=== PATIENT | female | born 1935 | race Caucasian/White ===

== ENCOUNTER → 2016-11-13 | Outpatient (CLI) | payer OTHER ==
--- NOTE | 2016-11-14 08:17 | RAD ---
DATE: 11/13/2016 EXAM: DIGITAL SCREEN BILAT W/CAD HISTORY: Routine screening. Benign bilateral biopsies. COMPARISON: 2016, 2014 and 2013 mammograms This study was interpreted with the benefit of Computerized Aided Detection (CAD ). TECHNIQUE: Routine CC and MLO views of both breasts are obtained. FINDINGS: The breast tissue density is [B ] . There are scattered stable benign calcifications and nodules in both breasts.. There are no dominant suspicious masses, suspicious microcalcifications or evidence of architectural distortion. Skin and nipples are intact. IMPRESSION: No mammographic evidence of malignancy. Stable mammogram. BI-RADS CATEGORY: 2 BENIGN FINDING RECOMMENDED FOLLOW-UP: One year PQRS compliance statement: Patient information was entered into a reminder system with a target due date for the next mammogram. Mammography is a sensitive method for finding small breast cancers, but it does not detect them all and is not a substitute for careful clinical examination. A negative mammogram does not negate a clinically suspicious finding and should not result in delay in biopsying a clinically suspicious abnormality. "Our facility is accredited by the [employer] Mammography Program." HORACIOD
== END | disposition home or self-care (01) ==
LOC: MAMMO 09:50
PROVIDERS: ATTEND Internal Medicine
DX: Z12.31 Encounter for screening mammogram for malignant neoplasm of breast (principal)
CPT/HCPCS: G0202; 77067

== ENCOUNTER → 2017-11-14 | Outpatient (CLI) | payer OTHER ==
--- NOTE | 2017-11-14 15:00 | RAD ---
DATE: 11/14/2017 EXAM: DIGITAL SCREEN BILAT W/CAD HISTORY: Routine screening COMPARISON: 11/13/2016 This study was interpreted with the benefit of Computerized Aided Detection (CAD). Breast Density: HETERO The breast parenchyma is heterogenously dense, which could reduce sensitivity of mammography. Breast parenchyma level C. FINDINGS: No new or enlarging breast densities are seen. There are numerous coarse benign type calcifications in both breasts. No suspicious microcalcifications have developed. Benign-appearing lymph node type densities are again noted in the left axilla. IMPRESSION: Stable mammograms without evidence of malignancy. BI-RADS CATEGORY: 2 BENIGN FINDING(S) RECOMMENDED FOLLOW-UP: 12M 12 MONTH FOLLOW-UP PQRS compliance statement: Patient information was entered into a reminder system with a target due date for the next mammogram. Mammography is a sensitive method for finding small breast cancers, but it does not detect them all and is not a substitute for careful clinical examination. A negative mammogram does not negate a clinically suspicious finding and should not result in delay in biopsying a clinically suspicious abnormality. "Our facility is accredited by the [employer] Mammography Program."
== END | disposition home or self-care (01) ==
LOC: MAMMO 09:50
PROVIDERS: ATTEND Internal Medicine
DX: Z12.31 Encounter for screening mammogram for malignant neoplasm of breast (principal)
CPT/HCPCS: 77067

== ENCOUNTER 2021-03-29 09:33 | Observation (INO) | payer MEDICARE, OTHER ==
[~2021-03-29] VITALS: Ht 162.6 cm; Wt 80.0 kg
[2021-03-29] MEDS ORDERED: IPRATRPIUM/ALBUTEROL 0.5/2.5MG 3 ML NEBU. NEB ONE (09:45)
[2021-03-29] MEDS ORDERED: methylPREDNISolone SOD SUCC PF 125 MG/2 ML VIAL. IV ONE (09:45)
[2021-03-29 10:04] LABS: BASO % 1 % (0-3); EOS % 1 % (0-3); HEMOGLOBIN 12.9 g/dL (12.0-15.5); LYMPH # 0.9 x10^3/uL (1.0-4.8); LYMPH % 15 % (24-48); MEAN CORPUSCULAR HEMOGLOBIN 30 pg (25-35); MEAN CORPUSCULAR HGB CONC 32 g/dL (31-37); MEAN CORPUSCULAR VOLUME 92 fL (79-100); MONO # 0.5 x10^3/uL (0.0-1.1); MONO % 9 % (0-9); NEUT # 4.5 x10^3uL (1.8-7.7); NEUT % 75 % (31-73); PLATELET COUNT 178 x10^3/uL (140-400); RED BLOOD COUNT 4.33 x10^6/uL (3.50-5.40); RED CELL DISTRIBUTION WIDTH 13.6 % (11.5-14.5)
--- NOTE | 2021-03-29 10:08 | EKG ---
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
--- NOTE | 2021-03-29 10:08 | RAD ---
XR CHEST 1V CLINICAL INDICATIONS: Shortness of breath. COMPARISON: None available Findings: Bilateral mild interstitial thickening or bronchitis is seen. No lung consolidation or pleu ral effusion or pneumothorax is apparent. Granuloma of the left lung base is seen. The heart size, pu lmonary vasculature, mediastinum and both edwardo are unremarkable. 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 Radiopaque loose bodies of both glenohumeral joints are seen. IMPRESSION: Mild bilateral central interstitial pneumonitis/bronchitis. This may be acute or chronic in nature. No lung consolidation is seen otherwise. Electronically signed by: Leodan Kamara MD (03/29/2021 10:06 AM) [id number]
[2021-03-29 10:13] LABS: CALCIUM 9.4 mg/dL (8.5-10.1); GFR 52.7
[2021-03-29 10:19] LABS: ALBUMIN 3.8 g/dL (3.4-5.0); ALBUMIN/GLOBULIN RATIO 1.1 (1.0-1.7); TOTAL BILIRUBIN 0.6 mg/dL (0.2-1.0); TOTAL PROTEIN 7.2 g/dL (6.4-8.2)
[2021-03-29 10:33] LABS: INFLUENZA A PATIENT NEGATIVE (NEGATIVE); INFLUENZA B PATIENT NEGATIVE (NEGATIVE)
--- NOTE | 2021-03-29 11:45 | PHYS DOC ---
Past History Additional Past Medical Histor: Gout Past Surgical History: Cholecystectomy, Hysterectomy, Other Additional Past Surgical Histo: knee, back Alcohol Use: None General Adult EDM: Chief Complaint: SHORTNESS OF BREATH HPI: HPI: 86-year-old female presents with shortness of breath. She has been feeling more short of breath last couple of days. She has had an intermittent cough for couple weeks but more persistent for about 1 week. It is much worse today so she came to the hospital. The patient does not have a history of asthma or COPD. She went to the doctor on Saturday and had a chest x-ray which was negative. Patient denies fever or chills. She has no other complaints at this time. Review of Systems: Review of Systems: Constitutional: Denies fever or chills Eyes: Denies change in visual acuity HENT: Denies nasal congestion or sore throat Respiratory: Denies cough or shortness of breath Cardiovascular: Denies chest pain or edema GI: Denies abdominal pain, nausea, vomiting, bloody stools or diarrhea : Denies dysuria Musculoskeletal: Denies back pain or joint pain Integument: Denies rash Neurologic: Denies headache, focal weakness or sensory changes Endocrine: Denies polyuria or polydipsia Lymphatic: Denies swollen glands Psychiatric: Denies depression or anxiety Current Medications: Current Meds: Current Medications Medications (Trade) Dose Ordered Sig/Zina Start Time Stop Time Status Last Admin Dose Admin Albuterol/ Ipratropium (Duoneb) 3 ml 1X ONCE 03/29/21 09:45 03/29/21 09:59 DC 03/29/21 09:54 3 ML Methylprednisolone Sodium Succinate (SOLU-Medrol 125MG VIAL) 125 mg 1X ONCE 03/29/21 09:45 03/29/21 09:59 DC 03/29/21 09:56 125 MG Allergies: Allergies: Allergies Coded Allergies Type Severity Reaction Last Updated Verified No Known Drug Allergies 03/29/21 No Physical Exam: PE: Constitutional: Well developed, well nourished, no acute distress, non-toxic appearance. [] HENT: Normocephalic, atraumatic, bilateral external ears normal, oropharynx moist, no oral exudates, nose normal. [] Eyes: PERRLA, EOMI, conjunctiva normal, no discharge. [] Neck: Normal range of motion, no tenderness, supple, no stridor. [] Cardiovascular:Heart rate regular rhythm, no murmur [] Lungs & Thorax: Bilateral breath sounds clear to auscultation [] Abdomen: Bowel sounds normal, soft, no tenderness, no masses, no pulsatile masses. [] Skin: Warm, dry, no erythema, no rash. [] Back: No tenderness, no CVA tenderness. [] Extremities: No tenderness, no cyanosis, no clubbing, ROM intact, no edema. [] Neurologic: Alert and oriented X 3, normal motor function, normal sensory function, no focal deficits noted. [] Psychologic: Affect normal, judgement normal, mood normal. [] Current Patient Data: Labs: Laboratory Tests Test 03/29/21 09:46 White Blood Count 6.0 x10^3/uL (4.0-11.0) Red Blood Count 4.33 x10^6/uL (3.50-5.40) Hemoglobin 12.9 g/dL (12.0-15.5) Hematocrit 40.0 % (36.0-47.0) Mean Corpuscular Volume 92 fL (79-100) Mean Corpuscular Hemoglobin 30 pg (25-35) Mean Corpuscular Hemoglobin Concent 32 g/dL (31-37) Red Cell Distribution Width 13.6 % (11.5-14.5) Platelet Count 178 x10^3/uL (140-400) Neutrophils (%) (Auto) 75 % (31-73) H Lymphocytes (%) (Auto) 15 % (24-48) L Monocytes (%) (Auto) 9 % (0-9) Eosinophils (%) (Auto) 1 % (0-3) Basophils (%) (Auto) 1 % (0-3) Neutrophils # (Auto) 4.5 x10^3uL (1.8-7.7) Lymphocytes # (Auto) 0.9 x10^3/uL (1.0-4.8) L Monocytes # (Auto) 0.5 x10^3/uL (0.0-1.1) Eosinophils # (Auto) 0.0 x10^3/uL (0.0-0.7) Basophils # (Auto) 0.0 x10^3/uL (0.0-0.2) Sodium Level 139 mmol/L (136-145) Potassium Level 4.0 mmol/L (3.5-5.1) Chloride Level 102 mmol/L (98-107) Carbon Dioxide Level 29 mmol/L (21-32) Anion Gap 8 (6-14) Blood Urea Nitrogen 21 mg/dL (7-20) H Creatinine 1.0 mg/dL (0.6-1.0) Estimated GFR (Cockcroft-Gault) 52.7 BUN/Creatinine Ratio 21 (6-20) H Glucose Level 143 mg/dL (70-99) H Calcium Level 9.4 mg/dL (8.5-10.1) Total Bilirubin 0.6 mg/dL (0.2-1.0) Aspartate Amino Transferase (AST) 24 U/L (15-37) Alanine Aminotransferase (ALT) 20 U/L (14-59) Alkaline Phosphatase 95 U/L (46-116) Troponin I High Sensitivity 15 ng/L (4-50) Total Protein 7.2 g/dL (6.4-8.2) Albumin 3.8 g/dL (3.4-5.0) Albumin/Globulin Ratio 1.1 (1.0-1.7) Influenza Type A (Rapid) Negative (NEGATIVE) Influenza Type B (Rapid) Negative (NEGATIVE) SARS-CoV-2 Antigen (Rapid) Negative (NEGATIVE) Vital Signs: Vital Signs Date Time Temp Pulse Resp B/P (MAP) Pulse Ox O2 Delivery O2 Flow Rate FiO2 03/29/21 11:00 73 16 172/78 (109) 95 Nasal Cannula 3.0 03/29/21 09:35 98.2 EKG: EKG: Sinus rhythm, rate 71, normal axis, no ST elevation or depression. [] Radiology/Procedures: Radiology/Procedures: [] Heart Score: C/O Chest Pain: No Risk Factors: Risk Factors: DM, Current or recent (<one month) smoker, HTN, HLP, family history of CAD, obesity. Risk Scores: Score 0 - 3: 2.5% MACE over next 6 weeks - Discharge Home Score 4 - 6: 20.3% MACE over next 6 weeks - Admit for Clinical Observation Score 7 - 10: 72.7% MACE over next 6 weeks - Early Invasive Strategies Course & Med Decision Making: Course & Med Decision Making Pertinent Labs and Imaging studies reviewed. (See chart for details) The patient arrived in moderate distress with her oxygen saturation in the 60s on room air. We immediately placed her on nonrebreather and she improved to the upper 90s. She was given a DuoNeb treatment and Solu-Medrol. This significantly improved her symptoms and we were able to decrease her to 3 L nasal cannula. She continues to have bilateral wheezing. Chest x-ray has the appearance of bronchitis. See official read for more details. Her labs are unremarkable. Her rapid COVID and influenza are negative. I will admit her to the hospital. I spoke with the hospitalist, Dr. Mccallum and he has accepted the patient for admission. [] Dragon Disclaimer: Dragon Disclaimer: This electronic medical record was generated, in whole or in part, using a voice recognition dictation system. Departure Departure: Impression: Primary Impression: Reactive airway disease Additional Impression: Hypoxia Disposition: ADMITTED INPATIENT Admitting Physician: Ernie Mccallum Condition: STABLE Referrals: VERENICE PRUITT MD (PCP) BLANE WESTON DO Mar 29, 2021 11:45
[2021-03-29] MEDS ORDERED: ONDANSETRON PF 4 MG/2 ML VIAL. IVP PRN (12:00)
[2021-03-29] MEDS: IPRATRPIUM/ALBUTEROL 0.5/2.5MG 3 ML NEBU. NEB SCH ×3 (12:00→21:24)
--- NOTE | 2021-03-29 13:22 | HP ---
DATE OF SERVICE: 03/29/2021 ADMIT DATE: 03/29/2021 ATTENDING PHYSICIAN: Dr. Mccallum. CHIEF COMPLAINT: Shortness of breath and wheezing. HISTORY OF PRESENT ILLNESS: The patient is a delightful sharp 86-year-old female admitted through the ED with a 1-week history of increasing shortness of breath. She saw her primary care doctor who prescribed a short course of Zithromax. Today, she called EMS personnel. She was wheezing quite a bit. She had decreased oxygen saturation. The workup in the ED was fairly unremarkable. Chest x-ray was entirely clear. There was no decompensation or infiltrate. She was given a dose of Solu-Medrol along with nebulizer treatment. By the time I saw her, her hypoxemia improved. Her oxygen saturations were adequate over 93% on 2 liters. She is admitted then with an episode of bronchospasm and hypoxemia, which has since resolved. PAST MEDICAL HISTORY: Significant for essential hypertension. She has a history of gout. She has a previous cholecystectomy and hysterectomy. ALLERGIES: She has no recorded drug allergies. CURRENT MEDICATIONS: Reviewed at home indicate she was taking Zithromax, albuterol inhaler, losartan, and allopurinol. I am finding the dose of these medications. SOCIAL HISTORY: She is a nonsmoker, nondrinker. She is and retired, lives with her . She has been active otherwise. FAMILY HISTORY: Her father of complication of lung disease. He was a heavy smoker. Mom of old age at age of 95. REVIEW OF SYSTEMS: Significant for the fact she has had all her vaccinations and booster shots. No COVID exposure. All other systems reviewed and turned out to be negative. PHYSICAL EXAMINATION: GENERAL: When I saw her, this is a very pleasant elderly female who is alert and oriented. VITAL SIGNS: Initial vital signs showed a blood pressure 138/87, pulse is 67 and regular. She was afebrile. Oxygen saturation when I saw her was 96% on 2 liters. HEENT: Head is without trauma. Pupils are reactive. Sclerae nonicteric. The oropharynx is clear. NECK: Supple, no bruits. LUNGS: Diffuse wheezing bilaterally. CARDIOVASCULAR: Showed regular heart tones. ABDOMEN: Soft. EXTREMITIES: Without edema. NEUROLOGIC FINDINGS: Focally intact. Speech is fluent. SKIN: Warm and dry. LABORATORY STUDIES: The hemoglobin is 12.9 g/dL with a white count of 6000. Electrolytes all within normal range. Creatinine 1.0 mg percent. Cardiac enzymes negative for coronary ischemia. Serology: Rapid COVID swab was negative. Influenza A and B were negative. ASSESSMENT: 1. This 86-year-old female has acute episode of bronchospasm. 2. Mild bronchitis. 3. Essential hypertension. 4. Hypoxemia, resolving. PLAN: 1. Observation status in our hospital. 2. Continue steroids as ordered. 3. Continue antibiotics as ordered. 4. Continue home meds. MARIANNE DR: Jannette TID: [id number]
[2021-03-29 14:00] VITALS: BP 170/66
[2021-03-29] MEDS ORDERED: LOSA100T14 PO (16:27)
[2021-03-29] MEDS ORDERED: CARV25TA2 PO (16:27)
[2021-03-29] MEDS ORDERED: ALLO300T PO (16:27)
[2021-03-29] MEDS ORDERED: hydrocort (16:27)
[2021-03-29] MEDS ORDERED: AMLO5TAB4 PO (16:27)
[2021-03-29] MEDS ORDERED: MECO10005 PO (16:27)
[2021-03-29] MEDS ORDERED: GEMF-24 PO (16:27)
[2021-03-29] MEDS ORDERED: FURO20TA3 PO (16:27)
[2021-03-29] MEDS ORDERED: ASPI81TA59 PO (16:27)
[2021-03-29] MEDS ORDERED: CALC1CAP7 PO (16:37)
[2021-03-29] MEDS ORDERED: [UNRECOGNIZED DRUG - OTHER] (16:42)
[2021-03-29 19:54] VITALS: BP 177/83
[2021-03-29] MEDS: methylPREDNISolone SOD SUCC PF 40 MG/ML VIAL. IV SCH (21:24)
[2021-03-29 23:21] VITALS: BP 170/76
[2021-03-30] MEDS: IPRATRPIUM/ALBUTEROL 0.5/2.5MG 3 ML NEBU. NEB SCH ×3 (05:45→09:16)
[2021-03-30 06:12] VITALS: BP 177/77
[2021-03-30] MEDS: methylPREDNISolone SOD SUCC PF 40 MG/ML VIAL. IV SCH ×2 (09:29→20:13)
--- NOTE | 2021-03-30 09:39 | PN ---
DATE: 03/30/2021 ATTENDING PHYSICIAN: Dr. Mccallum. SUBJECTIVE: She is still actively wheezing. She is less dyspneic than yesterday. OBJECTIVE FINDINGS: VITAL SIGNS: Blood pressure this morning is 177/77, pulse is 70 and regular. She is afebrile. Oxygen saturation 96% on just 1 liter. We are in the process of weaning her down. HEENT: Head is without trauma. Pupils are reactive. Sclerae nonicteric. Oropharynx clear. NECK: Supple, no bruits. LUNGS: Diffuse wheezing bilaterally persist. CARDIOVASCULAR: Regular heart tones. ABDOMEN: Soft. EXTREMITIES: Without edema. Chest x-ray on admission was clear. ASSESSMENT: 1. An 86-year-old female with acute bronchitis. 2. Bronchial asthma. 3. Hypoxemia, resolved. 4. Essential hypertension. PLAN: 1. Admit to regular admission. 2. Continue corticosteroids. 3. Wean down supplemental oxygen. 4. Continue empiric antibiotics. 5. Tentative discharge held until tomorrow. BONITA/SABRINA DR: Jannette TID: [id number]
[2021-03-30 11:56] VITALS: BP 187/74
[2021-03-30] MEDS ORDERED: BENZOCAINE/MENTHOL LOZNGE 18'S BOX. PO PRN (13:45)
[2021-03-30 15:51] VITALS: BP 196/73
[2021-03-30] MEDS: LACTOBACILLUS RHAMNOSUS GG 1 CAPSULE. PO SCH (20:13)
[2021-03-30] MEDS: LOSARTAN 50 MG TABLET. PO SCH (20:14)
[2021-03-30] MEDS: CARVEDILOL 12.5 MG TABLET PO SCH (20:14)
[2021-03-30 20:39] VITALS: BP 196/80
[2021-03-31 00:05] VITALS: BP 180/84
[2021-03-31 05:40] VITALS: BP 173/83
[2021-03-31] MEDS: LACTOBACILLUS RHAMNOSUS GG 1 CAPSULE. PO SCH (08:04)
[2021-03-31 08:05] VITALS: BP 173/83
[2021-03-31] MEDS: LOSARTAN 50 MG TABLET. PO SCH (08:05)
[2021-03-31] MEDS: CARVEDILOL 12.5 MG TABLET PO SCH (08:05)
[2021-03-31] MEDS: methylPREDNISolone SOD SUCC PF 40 MG/ML VIAL. IV SCH (08:06)
[2021-03-31] MEDS ORDERED: ASPIRIN CHEWABLE 81 MG TABLET. PO SCH (09:00)
[2021-03-31] MEDS ORDERED: amLODIPine BESYLATE 5 MG TABLET PO SCH (09:00)
--- NOTE | 2021-03-31 12:21 | DS ---
DATE OF DISCHARGE: 03/31/2021 ATTENDING PHYSICIAN: Dr. Mccallum FINAL DISCHARGE DIAGNOSES: 1. Acute bronchitis. 2. Reactive airway disease and asthma related to bronchitis. 3. Essential hypertension. 4. Hypoxemia, resolved. HISTORY AND PHYSICAL: The patient is a pleasant 86-year-old female admitted with bronchial asthma and hypoxemia. She called EMS. She was very tight and wheezing. After breathing treatments, oxygen saturations improved. She was admitted for further treatment and evaluation. PHYSICAL EXAMINATION: Please see the dictated note. PERTINENT LABORATORY AND X-RAY STUDIES: Admission hemoglobin was 12.9 g/dL with a white count of 6000. Chemistry panel unremarkable with a creatinine of 1.0 mg percent. Electrolytes within normal range. Transaminases were normal. Nonfasting blood sugar 143. Serology negative for influenza A and B and both rapid and PCR coronavirus were negative. She has been vaccinated. Chest x-ray showed some interstitial bronchitis without any consolidation. COURSE IN HOSPITAL: The patient admitted. She was started on intravenous Rocephin along with corticosteroids and breathing treatments with marked improvement. Supplemental oxygen was added and gradually weaned down, so by the third hospital day, her oxygen saturation on room air were adequate. At this time, she is ready for discharge. I recommended 7 more days of cephalexin 500 mg p.o. t.i.d., prednisone 40 mg daily for 7 days and stop and continuation of her home meds including the following. Her home meds are unchanged. She will continue her scheduled allopurinol, amlodipine, aspirin, calcium, Coreg, Lasix, Lopid, losartan and vitamin B12. She will follow up with her regular physician as needed. She was discharged then from our hospital in stable condition with explicit drug and followup care. Total discharge time was 39 minutes. BONITA/PAULA/MOISES DR: BONITA/carla TID: [id number]
== END 2021-03-31 10:37 | disposition home or self-care (01) ==
LOC: ER 09:33 → ER HOLD 11:50 → INTOOBSV 11:50 → 1 SOUTH 14:26
PROVIDERS: ADMIT Hospitalist; ATTEND Hospitalist
DX: J20.9 Acute bronchitis, unspecified (principal); Z20.822 Contact with and (suspected) exposure to COVID-19; I10 Essential (primary) hypertension; R09.02 Hypoxemia; M10.9 Gout, unspecified; Z79.01 Long term (current) use of anticoagulants; Z90.49 Acquired absence of other specified parts of digestive tract; Z90.710 Acquired absence of both cervix and uterus
CPT/HCPCS: 36415; 71045; 80053; 84484; 85025; 87428; 93005; 94640; 94760; 96365; 96366; 96375; 96376; 99285; G0378; J0696; J2920; J2930; U0003; 96374; G0379

== ENCOUNTER 2021-04-11 11:28 | Emergency (ER) | payer MEDICARE ==
[~2021-04-11] VITALS: Ht 162.6 cm; Wt 79.0 kg
[~2021-04-11 11:28] MED LIST: ALLO300T PO; AMLO5TAB4 PO; ASPI81TA59 PO; CALC1CAP7 PO; CARV25TA2 PO; FURO20TA3 PO; GEMF-24 PO; LOSA100T14 PO; MECO10005 PO; [UNRECOGNIZED DRUG - OTHER]; hydrocort
--- NOTE | 2021-04-11 11:30 | PHYS DOC ---
Past History Additional Past Medical Histor: Gout Past Surgical History: Cholecystectomy, Hysterectomy, Other Additional Past Surgical Histo: knee, back Alcohol Use: None Adult General HPI HPI Patient is a 86 year old female who presents with generalized weakness. Patient has been ill over the last 2 to 3 days. She normally lives at home with her and is able to ambulate without difficulty about her house. She can continue to do this. She has felt, however, generally weak over the last couple of days. She has mild loss of appetite. Becomes more short of breath than normal when walking through the house. No worsening orthopnea or lower extremity edema. No chest pain or palpitations. She denies any GI symptoms. No abdominal pain. No urinary symptoms. Review of Systems Review of Systems Constitutional: as documented in HPI Eyes: Denies change in visual acuity, redness, or eye pain HENT: Denies nasal congestion, + sore throat Respiratory: Denies cough Cardiovascular: No additional information not addressed in HPI GI: Denies abdominal pain, nausea, vomiting : Denies Musculoskeletal: Denies back pain Integument: Denies rash or skin lesions Neurologic: Denies headache, or focal neurologic complaints All other systems were reviewed and found to be within normal limits, except as documented in this note. Allergies Allergies Allergies Coded Allergies Type Severity Reaction Last Updated Verified No Known Drug Allergies 03/29/21 No Physical Exam Physical Exam Constitutional: Well developed, well nourished, no acute distress, non-toxic appearance. HENT: bilateral external ears normal, oropharynx moist, no oral exudates, nose normal. Eyes: PERRLA, EOMI, conjunctiva normal, no discharge Neck: Normal range of motion, no tenderness, supple, no stridor Cardiovascular:Heart rate regular rhythm Lungs & Thorax: Bilateral breath sounds clear to auscultation Abdomen: Bowel sounds normal, soft, no tenderness Skin: Warm, dry, no erythema, no rash. Back: Normal ROM Extremities: No tenderness, no cyanosis, no clubbing, ROM intact, no edema. Neurologic: Alert and oriented X 3, normal motor function, normal sensory function, no focal deficits Psychologic: Affect normal EKG EKG 12:00: Normal EKG. No ST changes to suggest ischemia. Radiology/Procedures Radiology/Procedures [] Heart Score C/O Chest Pain: No Risk Factors: Risk Factors: DM, Current or recent (<one month) smoker, HTN, HLP, family history of CAD, obesity. Risk Scores: Risk Factors: DM, Current or recent (<one month) smoker, HTN, HLP, family histo ry of CAD, obesity. Course & Med Decision Making Course & Med Decision Making Pertinent Labs and Imaging studies reviewed. (See chart for details) Seen and examined on arrival to her room. Normal neurologic exam. No focal neuro complaints. She complains of generalized weakness without more specific complaints. Broad work-up was ordered given her age. Will give IV fluid hydration. 13:35: All results are reviewed. No acute findings today to explain her work-up. She received IV fluids in the ER and is feeling mildly improved. Her creatinine was upper level of normal. Most likely mild dehydration. She is stable for discharge from the ER. Recommended she follow-up with her primary care doctor. Come back to the ER for any new or severely worsening symptoms. Increase her hydration and p.o. intake at home. Dragon Disclaimer Dragon Disclaimer This electronic medical record was generated, in whole or in part, using a voice recognition dictation system. Departure Departure: Impression: Primary Impression: Dehydration Disposition: HOME / SELF CARE / HOMELESS Condition: GOOD Referrals: VERENICE PRUITT MD (PCP) Patient Instructions: Dehydration, Adult HERACLIO DIAZ DO Apr 11, 2021 11:30
[2021-04-11 11:39] VITALS: BP 114/45
[2021-04-11] MEDS ORDERED: IV NORMAL SALINE 1,000ML 1,000 ML IV ONE (11:45)
--- NOTE | 2021-04-11 11:58 | RAD ---
AP chest. HISTORY: Dyspnea AP view was taken of the chest. There is marked arthritis in both shoulders. Patient's taken a poor i nspiration. There are no acute infiltrates. There is no effusion. Heart is normal in size. IMPRESSION: 1. No acute infiltrates. Electronically signed by: Sudeep Singer MD (04/11/2021 11:56 AM) [facility]
--- NOTE | 2021-04-11 12:06 | EKG ---
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
[2021-04-11 12:44] LABS: BASO # 0.1 x10^3/uL (0.0-0.2); BASO % 1 % (0-3); EOS # 0.2 x10^3/uL (0.0-0.7); EOS % 2 % (0-3); HEMATOCRIT 39.3 % (36.0-47.0); HEMOGLOBIN 12.9 g/dL (12.0-15.5); LYMPH # 1.1 x10^3/uL (1.0-4.8); LYMPH % 12 % (24-48); MEAN CORPUSCULAR HEMOGLOBIN 30 pg (25-35); MEAN CORPUSCULAR HGB CONC 33 g/dL (31-37); MEAN CORPUSCULAR VOLUME 91 fL (79-100); MONO # 0.6 x10^3/uL (0.0-1.1); MONO % 7 % (0-9); NEUT # 6.8 x10^3uL (1.8-7.7); NEUT % 78 % (31-73); PLATELET COUNT 148 x10^3/uL (140-400); RED BLOOD COUNT 4.34 x10^6/uL (3.50-5.40); RED CELL DISTRIBUTION WIDTH 13.8 % (11.5-14.5); WHITE BLOOD COUNT 8.7 x10^3/uL (4.0-11.0)
[2021-04-11 13:02] LABS: CALCIUM 8.1 mg/dL (8.5-10.1); CREATININE 1.2 mg/dL (0.6-1.0); GFR 42.7; POTASSIUM 4.1 mmol/L (3.5-5.1)
[2021-04-11 13:15] LABS: ALBUMIN 2.4 g/dL (3.4-5.0); TOTAL BILIRUBIN 0.7 mg/dL (0.2-1.0); TOTAL PROTEIN 4.7 g/dL (6.4-8.2)
[2021-04-11 13:15] LABS: INFLUENZA A PATIENT NEGATIVE (NEGATIVE); INFLUENZA B PATIENT NEGATIVE (NEGATIVE)
[2021-04-11 13:25] LABS: BACTERIA,URINE 0 /HPF (0-FEW); CLARITY,URINE CLEAR; COLOR,URINE YELLOW; GLUCOSE,URINE NEG (NEG); HYALINE CASTS, URINE FEW /HPF; NITRITE,URINE NEG (NEG); SQUAMOUS EPITHELIAL CELL,UR FEW /LPF; UROBILINOGEN,URINE 0.2 mg/dL (0.2 mg/dL)
== END 2021-04-11 14:12 | disposition home or self-care (01) ==
LOC: ER 11:28
DX: E86.0 Dehydration (principal); Z20.822 Contact with and (suspected) exposure to COVID-19
CPT/HCPCS: 36415; 71045; 80053; 81001; 83605; 83880; 84484; 85025; 87428; 93005; 96360; 96361; 99285; J7030